=== PATIENT | male | born 1990 | race Caucasian/White ===

== ENCOUNTER 2021-10-15 07:35 | Day surgery (SDC) | payer OTHER ==
[~2021-10-15] VITALS: Ht 182.9 cm; Wt 77.1 kg
[2021-10-15 08:00] VITALS: BP 109/69
--- NOTE | 2021-10-15 08:12 | NUR ---
NOTIFIED OF PT CURRENT VS. TELEPHONE ORDERS RECEIVED AT THIS TIME. WILL MEDICATE AND CONTINUE TO MONITOR.
--- NOTE | 2021-10-15 08:28 | NUR ---
CELL PHONE; WALLET WITH $10; AND CIGARETTES PLACED IN SECURITY BAG #[phone].
[2021-10-15 08:58] LABS: HEMATOCRIT 42.6 % (39.0-50.0); IMMATURE GRANULOCYTES 0.3 % (0.0-5.0); MEAN CELL VOLUME 87.8 fL CALC (80.0-100.0); MEAN CORPUSCULAR HGB 28.9 pG CALC (26.0-32.0); MEAN CORPUSCULAR HGB CONC 32.9 g/dL CAL (32.0-36.0); NEUT# 2.94 thou/uL (1.82-7.42); RED BLOOD COUNT 4.85 mill/uL (4.70-6.10); RED CELL DISTRI WIDTH 13.4 % (11.5-15.5)
[2021-10-15 09:19] LABS: ALBUMIN 4.2 g/dL (3.2-5.0); ALKALINE PHOSPHATASE 79 u/l (38-126); ANION GAP 11 (6-22 (CALC)); BILIRUBIN, TOTAL 0.6 mg/dL (0.0-1.4); BUN 22 mg/dL (9-20); BUN/CREATININE RATIO 27 (12-20 (CALC)); CARBON DIOXIDE 31 mmol/l (22-30); CHLORIDE 100 mmol/l (95-108); CREATININE 0.8 mg/dL (0.7-1.3); GFR > 60 ML/MIN (>=60 (CALC)); GFR FOR AFR.AMER. > 60 ML/MIN (>=60 (CALC)); POTASSIUM 4.8 mmol/l (3.5-5.1); SGOT/AST 33 u/l (17-59); SODIUM 137 mmol/l (137-146); TOTAL PROTEIN 7.3 g/dL (6.3-8.2)
[2021-10-15 10:15] VITALS: BP 105/57
--- NOTE | 2021-10-15 10:15 | NUR ---
NOTIFIED OF REPEAT VS. NO NEW ORDERS RECEIVED AT THIS TIME. WILL CONTINUE TO MONITOR.
[2021-10-15] MEDS ORDERED: CLONIDINE0.1 MG PO (16:50)
[2021-10-15] MEDS ORDERED: KLONOPIN0.5 MG PO (17:06)
[2021-10-15] MEDS ORDERED: NALTREXONE50 MG PO (17:06)
--- NOTE | 2021-10-15 18:25 | NUR ---
PATIENT ARRIVED ON FLOOR ACCOMAPNIED BY DR GRIFFITH AND NURSE EARL. PT LETHARGIC, ON BED.
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
--- NOTE | 2021-10-15 18:35 | NUR ---
BED ALARM INTIATED FOR SAFETY, PT WEARING NON SLIP SOCKS.
[2021-10-15 19:00] VITALS: BP 138/85
[2021-10-15 22:37] VITALS: BP 130/79
--- NOTE | 2021-10-15 23:02 | NUR ---
PT UP TO THE RESTROOM AT TIME. AMBULATED WITH STANBYASSIT WITH STEADY GAIT, REQUESTING BRIEF OFF AT THIS TIME. PT LOOKING FOR PHONE STATES THEY TOLD HIS DOWNSTAIRS IT HAD BEEN PUT IN THE SAFE. METAL CONTAINER MAKER NOTIFIED, NO PHONE IN THE SAFE OR ANY OTHER BELONGING. PATIENT NOTIFIED. CALLED MOTHER FROM BEDSIDE PHONE
--- NOTE | 2021-10-16 01:14 | NUR ---
PATIENT UP AND OUT OF BED ASKING FOR HIS PHONE AND HIS CLOTHES BECAUSE HE IS LEAVING, REORIRTED PT BACK TO BED AND MEDICATED PER EMAR
--- NOTE | 2021-10-16 01:30 | NUR ---
BILATERAL IV FOUND DISLODGED. NEW #22 IN THE RIGHT FOREARM STARTED BY Monserrat HICKS RN
[2021-10-16 04:00] VITALS: BP 142/79
--- NOTE | 2021-10-16 04:55 | NUR ---
PTS PHONE FOUND IN [facility] OFFICE. PT CALLED PHONE.
[2021-10-16 05:55] LABS: ALBUMIN 4.5 g/dL (3.2-5.0); ALKALINE PHOSPHATASE 70 u/l (38-126); ANION GAP 13 (6-22 (CALC)); BILIRUBIN, TOTAL 0.6 mg/dL (0.0-1.4); BUN 15 mg/dL (9-20); BUN/CREATININE RATIO 21 (12-20 (CALC)); CARBON DIOXIDE 28 mmol/l (22-30); CHLORIDE 104 mmol/l (95-108); CREATININE 0.7 mg/dL (0.7-1.3); GFR > 60 ML/MIN (>=60 (CALC)); GFR FOR AFR.AMER. > 60 ML/MIN (>=60 (CALC)); MAGNESIUM 2.2 mg/dL (1.6-2.3); POTASSIUM 4.2 mmol/l (3.5-5.1); SGOT/AST 32 u/l (17-59); SODIUM 140 mmol/l (137-146); TOTAL PROTEIN 7.3 g/dL (6.3-8.2)
--- NOTE | 2021-10-16 07:00 | NUR ---
REPORT RECIEVED FROM VIR[place] PEPE
[2021-10-16 07:49] VITALS: BP 143/78
--- NOTE | 2021-10-16 08:00 | NUR ---
PT AWAKE IN BED ANXIOUS TO GO HOME. STATES FEELING PAIN IN LOWER BACK, PTS TEMP WAS 100.3, TYENENOL GIVEN. PT ALSO STATES ABLE TO TOLERATE BREAKFAST FEELS NO N/V. ALLOWED ASSESSMENT AT THIS TIME. BREATHING EVEN AND UNLABORED. LUNG SOUNDS CLEAR UPPER/LOWER LOBES. BOWEL SOUNDS ACTIVE X4, HEART SOUNDS REGULAR. BED ALARM ON. IV SITE 18 RFA, FLUSHED WITH NO RESISTANCE. FALL PRECAUTIONS ARE IN PLACE. NO OTHER NEEDS AT THIS TIME. BESIDES WANTING TO GO HOME. CALL LIGHT WITHIN REACH.
--- NOTE | 2021-10-16 12:00 | NUR ---
Discharge instructions given. Patient verbalizes understanding of same. Discharged in stable condition via Ambulatory to Home WITH MOTHER AND ESCORTED BY ANR STAFF. All belongings sent with pt. IV REMOVED 28G RFA, INTACT UPON REMOVAL.
== END 2021-10-16 10:35 | disposition home or self-care (01) | DRG 897 ==
LOC: ANR 07:35 → MS2 07:38 → ANR 07:46
PROVIDERS: ATTEND Anesthesiology
DX: F11.20 Opioid dependence, uncomplicated (principal)
CPT/HCPCS: J2060; J2354